=== PATIENT | female | born 1980 | race Caucasian/White ===

== ENCOUNTER 2022-02-04 09:25 | Day surgery (SDC) | payer BC ==
[2022-02-02 13:58] VITALS: BMI 27.4
[2022-02-04] MEDS ORDERED: CeleCOXIB 100 MG CAP ONE (09:41)
[2022-02-04] MEDS ORDERED: PROPOFOL 20 ML ONE (11:53)
[2022-02-04] MEDS ORDERED: Ondansetron PF 4 MG/2 ML Vial ONE (11:53)
[2022-02-04] MEDS ORDERED: Dexamethasone 20 MG/5 ML VIAL ONE (11:53)
[2022-02-04] MEDS ORDERED: Fentanyl 100 MCG/2 ML VIAL ONE (11:53)
[2022-02-04] MEDS ORDERED: Lidocaine 2% PF 5 ML VIAL ONE (11:54)
[2022-02-04] MEDS ORDERED: Midazolam HCl 2 mg/2 ml Vial ONE (12:11)
== END 2022-02-04 14:05 | disposition home or self-care (01) ==
LOC: CSHSDC 09:25
PROVIDERS: ATTEND Student in an Organized Health Care Education/Training Program
PROC: 0UDB8ZX Extraction of Endometrium, Via Natural or Artificial Opening Endoscopic, Diagnostic (ICD-10-PCS; principal; 2022-02-04)
DX: N84.0 Polyp of corpus uteri (principal); F17.210 Nicotine dependence, cigarettes, uncomplicated; Z79.899 Other long term (current) drug therapy; Z88.5 Allergy status to narcotic agent; Z91.040 Latex allergy status; Z98.51 Tubal ligation status; Z90.49 Acquired absence of other specified parts of digestive tract
CPT/HCPCS: 36415; 86850; 86900; 86901; 88305; J1100; J2001; J2250; J2405; J2704; J3010